=== PATIENT | female | born 1990 | race Caucasian/White ===

== ENCOUNTER 2024-03-19 22:41 | Emergency (ER) | payer MEDICAID ==
[~2024-03-19] VITALS: Ht 167.6 cm; Wt 80.0 kg
[2024-03-19 22:44] VITALS: BP 129/68; PULSE 81; RESP 18; TEMP 98.2; O2SAT 98
[2024-03-20] MEDS ORDERED: FAMO-135 MT (01:11)
[2024-03-20] MEDS ORDERED: EPINEPHRINE 1:1000 1 MG/ML AMP SUBCUT ONE (01:15)
[2024-03-20] MEDS ORDERED: PREDNISONE 20MG TABLET PO ONE (01:15)
== END 2024-03-20 02:14 | disposition home or self-care (01) ==
LOC: ER 22:41
DX: T78.40XA Allergy, unspecified, initial encounter (principal); X58.XXXA Exposure to other specified factors, initial encounter
CPT/HCPCS: 99283